=== PATIENT | female | born 1965 | race Caucasian/White ===

== ENCOUNTER 2022-08-04 10:04 | Outpatient (CLI) | payer BC, SELFPAY | END 2022-08-04 10:05 | disposition home or self-care (01) | PROVIDERS: PCP Family Medicine; Visit Provider Family Medicine | DX: E78.5 Hyperlipidemia, unspecified (principal); I10 Essential (primary) hypertension; E03.8 Other specified hypothyroidism; F41.1 Generalized anxiety disorder; R53.83 Other fatigue | CPT/HCPCS: 80053; 80061; 82043; 82570; 84443 ==

== ENCOUNTER 2022-08-30 07:02 | Outpatient (CLI) | payer BC, SELFPAY ==
--- NOTE | 2022-08-30 07:15 | CRLHL7_ITS ---
For Patients: As a result of the Cures Act, medical imaging exams and procedure reports are released immediately into your electronic medical record. You may view this report before your referring provider. If you have questions, please contact your health care provider. INDICATION: HYPERTENSION TECHNIQUE: Grayscale, color Doppler and spectral Doppler evaluation of the renal arteries performed. COMPARISON: None available FINDINGS: BILATERAL RENAL ARTERY DUPLEX ULTRASOUND ABDOMINAL AORTA: Peak systolic velocity = 74 cm/s. No aortic aneurysm. RIGHT KIDNEY: 12.7 cm in length. There is no hydronephrosis. Simple cyst arises from the lower pole of the right kidney measuring 4.5 x 5.2 x 4.7 cm. A smaller right renal cyst is present as well measuring 2.6 x 1.6 x 2.1 cm. Peak systolic velocity = 103 cm/second Renal artery to aortic peak systolic velocity ratio = 1.4 Resistive indices: 0.66-0.69 Renal vein = patent LEFT KIDNEY: 11.2 cm in length. There is no hydronephrosis. Peak systolic velocity = 107 cm/second Renal artery to aortic peak systolic velocity ratio = 1.4 Resistive indices: 0.63-0.64 Renal vein = patent IMPRESSION: No evidence of significant renal artery stenosis. Incidental simple right renal cysts. Dictated by Jun Paz MD @ 08/30/2022 9:18:20 AM (Electronically Signed)
== END 2022-08-30 07:03 | disposition home or self-care (01) ==
LOC: US 07:03
PROVIDERS: PCP Family Medicine; Visit Provider Family Medicine
DX: I10 Essential (primary) hypertension (principal); N28.1 Cyst of kidney, acquired
CPT/HCPCS: 76775; 93975

== ENCOUNTER 2023-01-14 08:45 | Outpatient (CLI) | payer BC, SELFPAY | END 2023-01-14 08:46 | disposition home or self-care (01) | LOC: NFLDREF 01-17 08:52 | PROVIDERS: PCP Family Medicine; Referring Provider Family Medicine; Visit Provider Family Medicine | DX: I10 Essential (primary) hypertension (principal) | CPT/HCPCS: 80053; 82043; 82570 ==

== ENCOUNTER 2023-08-12 07:35 | Outpatient (CLI) | payer BC, SELFPAY | END 2023-08-12 07:36 | disposition home or self-care (01) | LOC: NFLDREF 08-15 06:29 | PROVIDERS: PCP Physician Assistant Medical; Referring Provider Physician Assistant Medical; Visit Provider Physician Assistant Medical | DX: E03.8 Other specified hypothyroidism (principal); E78.5 Hyperlipidemia, unspecified; I10 Essential (primary) hypertension | CPT/HCPCS: 80053; 80061; 84439; 84443 ==

== ENCOUNTER 2023-10-14 10:00 | Outpatient (CLI) | payer BC, SELFPAY | END 2023-10-14 10:01 | disposition home or self-care (01) | LOC: NFLDREF 11-03 07:42 | PROVIDERS: PCP Physician Assistant Medical; Referring Provider Physician Assistant Medical; Visit Provider Physician Assistant Medical | DX: E03.8 Other specified hypothyroidism (principal) | CPT/HCPCS: 84443 ==

== ENCOUNTER 2023-11-01 16:02 | Outpatient (CLI) | payer BC, SELFPAY ==
--- NOTE | 2023-11-01 16:20 | CRLHL7_ITS ---
For Patients: As a result of the Century Cures Act, medical imaging exams and procedure reports are released immediately into your electronic medical record. You may view this report before your referring provider. If you have questions, please contact your health care provider. BILATERAL DIGITAL SCREENING MAMMOGRAM WITH COMPUTER-AIDED DETECTION AND TOMOSYNTHESIS CLINICAL HISTORY: Routine screening exam. COMPARISON: None TECHNIQUE: Digital mammogram in CC and MLO projections including computer-aided detection (CAD). Tomosynthesis was used in this interpretation. BREAST COMPOSITION: There are scattered areas of fibroglandular density. FINDINGS: RIGHT Breast: Focal asymmetric density medial right breast 3 cm from the nipple. LEFT Breast: No suspicious findings. IMPRESSION: RIGHT breast asymmetry/mass. RECOMMENDATIONS: Additional mammographic views of the RIGHT breast including 3D spot compression CC/MLO. RIGHT breast ultrasound may also be required. The [facility] will contact the patient. BI-RADS Category 0: Incomplete: Need Additional Imaging Evaluation and/or Prior Mammograms for Comparison A lay language report of this examination will be provided to the patient. Dictated by Jun Paz MD @ 11/11/2023 8:11:19 AM [email or web address] RD/Dictated by: Jun Paz MD @ 11/11/2023 8:11:00 AM (Electronically Signed)
== END 2023-11-01 16:03 | disposition home or self-care (01) ==
LOC: MAMMO 16:03
PROVIDERS: PCP Physician Assistant Medical; Visit Provider Physician Assistant Medical
DX: Z12.31 Encounter for screening mammogram for malignant neoplasm of breast (principal); N63.10 Unspecified lump in the right breast, unspecified quadrant
CPT/HCPCS: 77063; 77067

== ENCOUNTER 2023-11-25 07:40 | Outpatient (CLI) | payer BC, SELFPAY ==
--- NOTE | 2023-11-25 07:45 | CRLHL7_ITS ---
For Patients: As a result of the Cures Act, medical imaging exams and procedure reports are released immediately into your electronic medical record. You may view this report before your referring provider. If you have questions, please contact your health care provider. DIGITAL DIAGNOSTIC RIGHT MAMMOGRAM USING TOMOSYNTHESIS AND COMPUTER-AIDED DETECTION RIGHT BREAST ULTRASOUND CLINICAL HISTORY: RIGHT breast mass/asymmetry. COMPARISON: 11/01/2023. TECHNIQUE: Digital RIGHT mammogram in two projections with computer-aided detection. Tomosynthesis was used in this interpretation. Real-time ultrasound imaging of RIGHT breast with imaging documentation. Scanning was performed by both the technologist and the radiologist. BREAST COMPOSITION: There are areas of scattered fibroglandular density. FINDINGS: 3D spot compression CC/MLO RIGHT breast mammogram images submitted. Decreased conspicuity of the previously noted asymmetric density. No architectural distortion or suspicious calcifications. Targeted RIGHT breast ultrasound performed in the medial breast, including 3 o`clock 4 cm from the nipple. Normal fibroglandular tissue. No fibrocystic change or a solid mass. IMPRESSION: No evidence of malignancy. No suspicious findings. RECOMMENDATIONS: Annual bilateral screening mammography. Results and recommendations discussed with the patient. BI-RADS Category 2: Benign A lay language report of this examination will be provided to the patient. Dictated by Jun Paz MD @ 11/25/2023 9:54:17 AM /Dictated by: Jun Paz MD @ 11/25/2023 9:54:00 AM (Electronically Signed)
--- NOTE | 2023-11-25 08:15 | CRLHL7_ITS ---
For Patients: As a result of the Cures Act, medical imaging exams and procedure reports are released immediately into your electronic medical record. You may view this report before your referring provider. If you have questions, please contact your health care provider. PLEASE SEE DIGITAL DIAGNOSTIC RIGHT MAMMOGRAM PERFORMED SAME DAY [email or web address] tao/Dictated by: Jun Paz MD @ 11/25/2023 9:54:00 AM (Electronically Signed)
== END 2023-11-25 07:41 | disposition home or self-care (01) ==
LOC: MAMMO 07:40
PROVIDERS: PCP Physician Assistant Medical; Visit Provider Physician Assistant Medical
DX: N63.10 Unspecified lump in the right breast, unspecified quadrant (principal); R92.8 Other abnormal and inconclusive findings on diagnostic imaging of breast
CPT/HCPCS: 76642; 77065; G0279

== ENCOUNTER 2024-01-30 15:20 | Outpatient (CLI) | payer BC, SELFPAY | END 2024-01-30 15:21 | disposition home or self-care (01) | LOC: NFLDREF 02-05 10:26 | PROVIDERS: PCP Physician Assistant Medical; Referring Provider Physician Assistant Medical; Visit Provider Physician Assistant Medical | DX: F33.2 Major depressive disorder, recurrent severe without psychotic features (principal); Z13.21 Encounter for screening for nutritional disorder; Z13.29 Encounter for screening for other suspected endocrine disorder | CPT/HCPCS: 82306; 82607; 82728; 84443 ==

== ENCOUNTER 2024-08-31 07:25 | Outpatient (CLI) | payer BC, SELFPAY | END 2024-08-31 07:26 | disposition home or self-care (01) | PROVIDERS: PCP Physician Assistant Medical; Referring Provider Physician Assistant Medical; Visit Provider Physician Assistant Medical | DX: E78.2 Mixed hyperlipidemia (principal); I10 Essential (primary) hypertension; I25.118 Atherosclerotic heart disease of native coronary artery with other forms of angina pectoris; E03.8 Other specified hypothyroidism | CPT/HCPCS: 80053; 80061; 84443 ==